=== PATIENT | female | born 1950 | race Caucasian/White ===

== ENCOUNTER 2016-11-11 01:09 | Observation (INO) | payer MEDICARE, OTHER ==
[~2016-11-11] VITALS: Ht 177.8 cm; Wt 88.9 kg
[2016-11-11] MEDS ORDERED: IV NORMAL SALINE 1000ML BAG 1,000 ML IV SCH (04:45)
[2016-11-11] MEDS: MORPHINE SULFATE 2 MG/ML DISP.SYRIN. IV PRN ×2 (05:47→09:54)
[2016-11-11 07:00] VITALS: BP 121/57
[2016-11-11 11:00] VITALS: BP_SYST 110; BP_SYST 116; BP_DIAS 50; BP_DIAS 57
[2016-11-11 15:00] VITALS: BP 108/54
--- NOTE | 2016-11-11 17:49 | PDOC2 ---
CONSULT Date of Consult Date of Consult DATE: 11/11/16 TIME: 13:00 Reason for Consult Reason for Consult: right ankle fracture Referring Physician Referring Physician: Dr. Rice Identification/Chief Complaint Chief Complaint right ankle pain Source Source: Patient History of Present Illness Reason for Visit: Ms. Armenta is a 65 year old female patient who was transferred here from [facility] for a right ankle fracture. She fell down one step at home last night, twisting her ankle. She states she heard a pop. She could bear weight on the right lower extremity, but it was painful. She denies hitting her head, feelings of lightheadedness, or loss of consciousness. The ankle is immobilized in a posterior splint and she has mild ankle pain. She has fractured this ankle in the past. Past Medical History Past Medical History seasonal allergies Cardiovascular: Hyperlipidemia Endocrine: Hypothyroidism Past Surgical History Past Surgical History right ankle ORIF and hardware removal, bowel obstruction surgery x2, knee arthroscopy, Gloria's neuroma removal, left foot bunionectomy Past Surgical History: Hysterectomy Family History Family History: Cancer, Heart Disease Social History Social History lives at own home with No ALCOHOL: none Drugs: None Lives: with Family Current Medications Current Medications Current Medications Sodium Chloride (Iv Sodium Chloride 0.9% 1000ml Bag) 1,000 ml @ 75 mls/hr [id number] IV Last administered on 11/11/16 04:53; Start 11/11/16 at 04:45 Morphine Sulfate 2 mg PRN Q2HR PRN IV PAIN Last administered on 11/11/16 09:54 ; Start 11/11/16 at 04:45 Ondansetron HCl (Zofran) 4 mg PRN Q6HRS PRN IV NAUSEA/VOMITING; Start 11/11/16 at 04:45 Allergies Allergies: Coded Allergies: Sulfa (Sulfonamide Antibiotics) (Verified Allergy, Severe, 11/11/16) Rashes nalbuphine (Verified Allergy, Intermediate, headache, 11/11/16) Uncoded Allergies: oxucodone (Allergy, Mild, headache, 11/11/16) ROS General: No: Chills, Night Sweats Eyes: No Decreased vision, No Double vision HEENT: No: Heacaches, Hearing change, Visual Changes Hematological and Lymphatic: No: Blood Clots Respiratory: No: Cough, Pleuritic Pain, Shortness of breath Cardiovascular: No Chest Pain Gastrointestinal: No Abdominal Pain, No Constipation, No Diarrhea, No Nausea, No Vomiting Genitourinary: No Dysuria Musculoskeletal: Yes Pain In: (right ankle. States she has had remote right elbow pain after injuring her elbow putting together furniture) Neurological: No Confusion, No Dizziness Physical Exam General: Alert, Oriented X3, Cooperative, No acute distress HEENT: Atraumatic, EOMI Lungs: Normal air movement Heart: Regular rate Abdomen: Soft Extremities: No clubbing, No cyanosis, No edema, Normal pulses Skin: No rashes, No breakdown, No significant lesion Neuro: Normal speech, Normal tone, Sensation intact Psych/Mental Status: Mental status NL, Mood NL MUSCULOSKELETAL: Other (The right ankle is in a posterior orthoglass splint. The splint was removed and the ankle was examined. There is no ecchymosis visualized. The medial malleolus is not tender to palpation. There is tenderness to palpation laterally, over the fracture. Calf soft and nontender. No edema. Posterior tibialis and dorsalis pedis pulse intact bilaterally. Light touch sensation intact.) Vitals VITALS Vital Signs Date Time Temp Pulse Resp B/P Pulse Ox O2 Delivery O2 Flow Rate FiO2 11/11/16 15:00 98.3 62 18 108/54 92 Room Air 98.3 Images Images Tib/fib and foot x-rays were negative for acute bony findings. Right ankle x-rays show an oblique fracture of the distal fibula without significant displacement. There is no fracture seen of the medial malleolus. There is 3.21 mm of medial widening. Assessment/Plan Assessment/Plan Right distal fibula fracture. The lateral malleolus fracture is very minimally displaced and is stable. Dr. Darnell recommended nonoperative treatment for this with immobilization for two weeks. Surgery is generally not recommended for < 7 mm of medial widening. Toe- touch weightbearing with a walker or crutches, whatever the patient is most comfortable with. Citracal, two tablets twice daily, which the patient already takes. Begin aspirin 325mg daily for DVT prophylaxis. Office followup in 10-14 days, at which time we will switch to a CAM walker and begin some progressive weightbearing. HOLLY CHARLES Nov 11, 2016 17:49
[2016-11-11] MEDS ORDERED: LEVO75TA5 PO (17:52)
[2016-11-11] MEDS ORDERED: TIZA4TAB PO (17:52)
[2016-11-11] MEDS ORDERED: MONT10TA9 PO (17:54)
[2016-11-11] MEDS ORDERED: ESCI20TA10 PO (17:54)
[2016-11-11] MEDS ORDERED: ATOR20TA58 PO (17:54)
--- NOTE | 2016-11-11 17:54 | HP ---
ADMIT DATE: 11/11/2016 CHIEF COMPLAINT: Tib-fib fracture. HISTORY OF PRESENT ILLNESS: The patient is a 65-year-old woman who unfortunately missed steps on her stairs and fell. She experienced severe pain which after a few hours made her present to the Emergency Room. On x-ray, her fear of fracture was indeed confirmed. She relates that about 15 years ago, she actually fractured ankle on the same side (right) and had required surgery at that time. She denies any other significant surgeries. Pain currently is fairly well controlled. PAST MEDICAL HISTORY: Hypercholesterolemia and environmental allergies. FAMILY HISTORY: Negative for heart disease or strokes. SOCIAL HISTORY: Works as a community fundraiser, never smoked. No alcohol or drug use. ALLERGIES: SULFA, NALBUPHINE, and OXYCODONE. MEDICATIONS: MAR reconciled with home medications. REVIEW OF SYSTEMS: Pain in right lower extremity. No other symptoms in rest of organ system review. PHYSICAL EXAMINATION: VITAL SIGNS: From today show a blood pressure of 116/50, heart rate of 100. She is afebrile. GENERAL: This is a well-nourished, well developed, 65-year-old woman, very pleasant. HEENT: Shows no scleral icterus. NECK: Supple without any lymphadenopathy. LUNGS: Clear to auscultation bilaterally. HEART: Regular rate and rhythm without any murmurs. ABDOMEN: Has positive bowel sounds, soft, and nontender. EXTREMITIES: Show no edema. Right lower extremity is in cast. LABORATORY DATA: From [facility] were reviewed. ASSESSMENT AND PLAN: 1. The patient is a 65-year-old woman who unfortunately had a traumatic tib-fib fracture which requires orthopedic fixation. Pain control in the meantime is adequate on her current regimen with morphine sulfate two q. 2 h. 2. Continue IV fluids, keep her n.p.o. for the time being. Once postsurgical, home medications will be continued, and Lovenox will be started tomorrow morning, pending surgical okay. FOSTER CHIANG MD DR: UR/nts JOB#: [id number] / [id number] SHANTELL Deng
[2016-11-11] MEDS ORDERED: MELO-156 PO (17:55)
[2016-11-11] MEDS ORDERED: HYDROCODONE/APAP 5/325MG TABLET. PO PRN ×2 (18:00)
[2016-11-11 19:00] VITALS: BP 128/60
[2016-11-11] MEDS ORDERED: TRAMADOL 50 MG TABLET. PO PRN (20:30)
[2016-11-11] MEDS: TRAMADOL 50 MG TABLET. PO PRN (20:48)
[2016-11-11 23:00] VITALS: BP 132/59
[2016-11-12] MEDS ORDERED: tiZANidine 4 MG TABLET. PO PRN
[2016-11-12] MEDS: TRAMADOL 50 MG TABLET. PO PRN ×3 (02:16→14:00)
[2016-11-12 03:00] VITALS: BP 102/40
--- NOTE | 2016-11-12 06:12 | ACF ---
Admit Criteria Forms Admit Criteria Forms Admit Criteria Forms MUSCULOSKELETAL DISEASE GRG Clinical Indications for Admission to Inpatient Care (Place 'X' for any and all applicable criteria): Hospital admission is needed for appropriate care of the patient because of 1 or more of the following: [X]I. Fracture, dislocation, or other musculoskeletal injury requiring inpatient care(medical) as indicated by 1 or more of the following(4)(5)(6)(7) [ ]a) Vertebral fracture requiring observation for instability or neurologic compromise (8) [ ]b) Compartment syndrome (proven or cannot be ruled out during observation level of care) (9) [ ]c) Limb-threatening injury [X]d) Major injury requiring inpatient stabilization such as traction initiation or external fixation before internal fixation or closure of complex or open fracture [X]e) Major injury requiring inpatient treatment after emergency or observation level care (as appropriate) [X]f) Severe pain requiring acute inpatient management [ ]g) Injury with suspicion of abuse or neglect (eg., child, dependent elderly) [ ]II. Newly diagnosed or suspected bone, joint, or orthopedic device infection (e.g., osteomyelitis, septic arthritis) needing 1 or more of the following(1)(2)(3) [ ]a) IV antibiotics that cannot be initiated in other than inpatient setting (e.g., patient too unstable or home infusion not available) [ ]b) Device removal or replacement [ ]c) Bone or soft tissue debridement [ ]d) Joint drainage (drain placement or repetitive aspirations) [ ]III. Severe rheumatologic disease (e.g., systemic lupus erythematosus, rheumatoid arthritis) with complications or comorbidities (Also use Optimal Recovery Care Criteria or General Recovery Criteria as appropriate on the basis of predominant condition), including 1 or more of the following( 10)(11)(12)(13) [ ]a) Severe infection (e.g., DENTAL APPLIANCE REPAIRER infection, sepsis) (14) [ ]b) Respiratory complications, including 1 or more of the following : [ ]i) Pleural effusion with respiratory compromise [ ]ii) Pulmonary hypertension with congestive failure [ ]iii) Respiratory failure [ ]iv) Pulmonary hemorrhage (15) [ ]c) Hematologic disease, including 1 or more of the following: [ ]i) Coagulopathy with bleeding [ ]ii) Thrombosis with hypercoagulable state [ ]iii) Thrombotic thrombocytopenic purpura [ ]d) Cerebritis with seizures, psychosis, or other severe abnormalities [ ]e) Vertebral destruction with monitoring needed for cervical myelopathy& possible respiratory compromise [ ]f) Exacerbation that requires inpatient treatment (e.g., intravenous immunosuppression) (16) [ ]g) Acute renal failure [ ]h) Cerebritis with seizures, psychosis, Altered mental status, or other neurologic abnormalities [ ]i) Pericardial effusion with tamponade [ ]j) Vertebral destruction, with monitoring needed for cervical myelopathy and possible respiratory compromise [ ]IV. Severe vasculitis with complications or comorbidities (Also use Optimal Recovery Care Criteria General Recovery Criteria as appropriate on the basis of predominant condition), including 1 or more of the following(11)(12)(17)(18)(19)(20) [ ]a) Exacerbation that requires inpatient treatment (e.g., intravenous immunosuppression) (19)(21) [ ]b) Pulmonary hemorrhage (15) [ ]c) DENTAL APPLIANCE REPAIRER vasculitis with seizures, psychosis, Altered mental status that is severe or persistent, or other severe abnormalities (22) [ ]d) Cerebral infarction [ ]e) Gastrointestinal ischemia [ ]f) Gangrene or threatened amputation [ ]g) Renal failure (16) [ ]h) Other significant complications of vasculitis ( eg., tissue or organ ischemia, organ dysfunction ) [ ]V. Severe myopathy as indicated by 1 or more of the following (28)(29) [ ]a) New onset of airway compromise or inability to swallow [ ]b) Respiratory deterioration with observation needed for impending respiratory failure [ ]c) Exacerbation that requires inpatient treatment (e.g., intravenous immunosuppression) [ ]. Severe crystal gout (arthropathy) indicated by 1 or more of the following (23)(24) [ ]a) Severe pain requiring acute inpatient management [ ]b) Exacerbation that requires inpatient treatment (e.g., intravenous treatment) [ ]VII.Rhabdomyolysis and 1 or more of the following (25)(26)(27) [ ]a) Acute renal failure [ ]b) Need for intravenous hydration after emergency or observation level care (as appropriate) [ ]c) Inability to maintain oral hydration [ ]d) Change in mental status [ ]e) Electrolyte abnormality that remains after emergency or observation level care (as appropriate) [ ]VIII Post amputation complication, as indicated by ANY ONE of the following [ ]a) Infection [ ]b) Dehiscence [ ]c) Myodesis failure [ ]IX. Severe pain requiring acute inpatient management due to musculoskeletal condition [ ]X. Musculoskeletal Disease and ALL of the following: [ ]a) Symptom or finding for which emergency and observation care have failed or are not considered appropriate (Use General Criteria: Observation Care as appropriate) [ ]b) Presence of ANY ONE of the following [ ]i) A General Admission Criteria [ ]ii) A Pediatric General Admission Criteria The original [facility] [employer] content created by [facility] has been revised. The portions of the content which have been revised are identified through the use of italic text or in bold, and [facility] has neither reviewed nor approved the modified material. All other unmodified content is copyright [facility]. Please see references footnoted in the original [facility] edition 2016 MARIAMA REDDY Nov 12, 2016 06:12
[2016-11-12 07:00] VITALS: BP 99/51
[2016-11-12] MEDS ORDERED: LEVOTHYROXINE 75 MCG TABLET PO SCH (07:00)
[2016-11-12] MEDS ORDERED: MELOXICAM 7.5 MG TABLET PO SCH (09:00)
[2016-11-12] MEDS ORDERED: TRAM50TA PO (10:07)
--- NOTE | 2016-11-12 10:13 | PDOC3 ---
Discharge Summary Visit Information Date of Admission: Nov 11, 2016 Date of Discharge: Nov 12, 2016 Admitting Diagnosis: ankle fracture Final Diagnosis Problems Medical Problems: (1) Ankle fracture Status: Acute Brief Hospital Course Allergies Allergies Coded Allergies Type Severity Reaction Last Updated Verified Sulfa (Sulfonamide Antibiotics) Allergy Severe 11/11/16 Yes nalbuphine Allergy Intermediate headache 11/11/16 Yes hydrocodone Allergy Unknown 11/11/16 Yes oxycodone Adverse Reaction Intermediate HEADACHE 11/11/16 No Vital Signs Vital Signs Date Time Temp Pulse Resp B/P Pulse Ox O2 Delivery O2 Flow Rate FiO2 11/12/16 07:00 98.1 60 16 99/51 93 Room Air 98.1 Brief Hospital Course Ms. Armenta is a 65 old woman who was transferred here from [facility] ER for a right ankle fracture, traumatic tib-fib fracture which required orthopedic fixation. Pain control OK with Ultram, takes mobic at home she felt well the next day, pain OK, wanted to DC home with crutches, PT eval pending Per Ortho, lateral malleolus fracture is very minimally displaced and is stable. Dr. Darnell recommended nonoperative treatment for this with immobilization for two weeks. Discharge Information Condition at Discharge: Improved Follow Up: Weeks Disposition/Orders: D/C to Home Scheduled Atorvastatin Calcium (Atorvastatin Calcium) 20 MG PO HS (Reported) Escitalopram Oxalate (Lexapro) 20 MG PO HS (Reported) Levothyroxine Sodium (Levothyroxine Sodium) 1 TAB PO DAILY (Reported) Meloxicam (Meloxicam) 1 TAB PO DAILY (Reported) Montelukast Sodium (Montelukast Sodium Tablet) 10 MG PO HS (Reported) Scheduled PRN Tizanidine Hcl (Tizanidine Hcl) 4 MG PO TID PRN PRN MUSCLE SPASMS (Reported) Tramadol Hcl (Tramadol Hcl) 50 MG PO PRN Q4HRS PRN PRN pain YOSSI DUNHAM MD Nov 12, 2016 10:13
[2016-11-12 11:34] VITALS: BP 132/67
[2016-11-12] MEDS ORDERED: POLYETHYLENE GLYCOL 3350 17 GM PACKET. PO ONE (12:15)
[2016-11-12] MEDS: ONDANSETRON PF 4 MG/2 ML VIAL. IV PRN ×2 (12:15→16:04)
[2016-11-12] MEDS ORDERED: MAGNESIUM HYDROXIDE 2,400 MG/30 ML ORAL.SUSP. PO PRN (12:15)
[2016-11-12] MEDS ORDERED: POLYETHYLENE GLYCOL 3350 17 GM PACKET. PO PRN (12:15)
[2016-11-12] MEDS ORDERED: DOCUSATE SODIUM 100 MG CAPSULE. PO PRN (12:15)
[2016-11-12 15:31] VITALS: BP 122/62
[2016-11-12] MEDS ORDERED: PROC10TA57 PO (16:42)
[2016-11-12] MEDS ORDERED: ATORVASTATIN CALCIUM 20 MG TABLET PO SCH (21:00)
[2016-11-12] MEDS ORDERED: ESCITALOPRAM 10 MG TABLET. PO SCH (21:00)
[2016-11-12] MEDS ORDERED: MONTELUKAST SODIUM 10 MG TABLET. PO SCH (21:00)
== END 2016-11-12 16:30 | disposition home or self-care (01) ==
LOC: 4 NORTH 04:23 → INTOOBSV 04:23
PROVIDERS: ADMIT Internal Medicine; ATTEND Internal Medicine
DX: S82.831A Other fracture of upper and lower end of right fibula, initial encounter for closed fracture (principal); E78.5 Hyperlipidemia, unspecified; E03.9 Hypothyroidism, unspecified; E78.00 Pure hypercholesterolemia, unspecified; Z80.9 Family history of malignant neoplasm, unspecified; W10.9XXA Fall (on) (from) unspecified stairs and steps, initial encounter; Y93.89 Activity, other specified; Y92.89 Other specified places as the place of occurrence of the external cause; Y99.8 Other external cause status
CPT/HCPCS: 96361; 96374; 96375; 96376; 97161; 97165; G0378; G0379; G8978; G8979; J2270; J2405; J7030

== ENCOUNTER → 2021-02-08 | Outpatient (CLI) | payer MEDICARE, OTHER ==
[~2021-02-08] MED LIST: ATOR20TA58 PO; LEVO75TA5 PO; LEXAPRO20 MG PO; MELO7.5T29 PO; MONT10TA49 PO; PROC10TA57 PO; TIZA4TAB2 PO; TRAM50TA PO
--- NOTE | 2021-02-08 11:13 | CARD ---
MR#: [id number] Date of Study: 02/08/2021 Ordering Physician: PETRONA MANNING, Referring Physician: PETRONA MANNING, Tech: Jam Aranda [facility] APPROVED REPORT EXAM: Two-dimensional and M-mode echocardiogram with Doppler and color Doppler. Other Information Quality : AverageHR: 63bpm Rhythm : NSR INDICATION Murmur 2D DIMENSIONS Left Atrium(2D)3.8 (1.6-4.0cm)IVSd0.8 (0.7-1.1cm) Aortic Root(2D)2.7 (2.0-3.7cm)LVDd4.4 (3.9-5.9cm) LVOT Diameter1.8 (1.8-2.4cm)PWd0.8 (0.7-1.1cm) LVDs2.2 (2.5-4.0cm)FS (%) 50.7 % SV72.5 ml Aortic Valve AoV Peak Miles.201.7cm/sAoV VTI44.5cm AO Peak GR.16.3mmHgLVOT Peak Miles.191.3cm/s AO Mean GR.10mmHgAVA (VMAX)2.46cm2 Mitral Valve MV E Gcsnbmqp737.0cm/sMV E Peak Gr.7mmHg MV DECEL [id number] A Xkyptvhs55.1cm/s MV E Mean Gr.2mmHgE/A Ratio1.5 Pulmonary Valve PV Peak Bmhqjokb767.0cm/s Tricuspid Valve TR P. Hyftzchq694mi/sTR Peak Gr.33mmHg Pulmonary Vein S1 Omuepdgm63.8cm/sD2 Pvwlwthl11.1cm/s LEFT VENTRICLE The left ventricle is normal size. There is normal left ventricular wall thickness. The left ventricu lar systolic function is normal. LV ejection fraction is 55 to 60%. There is normal LV segmental wall motion. No left ventricle thrombus noted on this study. There is no ventricular septal defect visual ized. There is no left ventricular aneurysm. There is no mass noted in the left ventricle. RIGHT VENTRICLE The right ventricle is normal size. There is normal right ventricular wall thickness. The right ventr icular systolic function is normal. ATRIA The left atrium is mildly dilated. The right atrium size is normal. The interatrial septum is intact with no evidence for an atrial septal defect or patent foramen ovale as noted on 2-D or Doppler imagi ng. AORTIC VALVE The aortic valve is normal in structure and function. Doppler and Color Flow revealed no significant aortic regurgitation. There is no significant aortic valvular stenosis. There is no aortic valvular v egetation. MITRAL VALVE Mitral annular calcification is mild. There is no evidence of mitral valve prolapse. There is no mitr al valve stenosis. Doppler and Color-flow revealed mild mitral regurgitation. TRICUSPID VALVE The tricuspid valve is normal in structure and function. Doppler and Color Flow revealed trace tricus pid regurgitation. There is no tricuspid valve prolapse or vegetation. There is no tricuspid valve st enosis. PULMONIC VALVE The pulmonary valve is normal in structure and function. Mild pulmonic regurgitation There is no pulm onic valvular stenosis. GREAT VESSELS The aortic root is normal in size. The ascending aorta is normal in size. The pulmonary artery is nor mal. The IVC is normal in size and collapses >50% with inspiration. PERICARDIAL EFFUSION There is no pleural effusion. There is no evidence of significant pericardial effusion. Critical Notification Critical Value: No <Conclusion> The left ventricle is normal size. The left ventricular systolic function is normal. LV ejection fraction is 55 to 60%. There is no significant aortic valvular stenosis. There is no aortic valvular vegetation. Doppler and Color-flow revealed mild mitral regurgitation. Doppler and Color Flow revealed trace tricuspid regurgitation. Signed by : Amrit Rodriguez MD Electronically Approved : 02/08/2021 11:13:35
== END ==
LOC: ECHO 09:55
PROVIDERS: ATTEND Physician Assistant Medical
DX: I08.8 Other rheumatic multiple valve diseases (principal); R01.1 Cardiac murmur, unspecified
CPT/HCPCS: 93306

== ENCOUNTER → 2021-02-26 | Outpatient (CLI) | payer MEDICARE, OTHER ==
--- NOTE | 2021-02-27 17:18 | RAD ---
MR#: [id number] Date of Study: 02/26/2021 Ordering Physician: OSWALD COFFMAN, Referring Physician: OSWALD COFFMAN, Tech: Jael Hayes RDMS, RVT, RTR APPROVED REPORT Patient Location : OUT-PATIENT Indications Lower Extremity Edema : Bilateral Peripheral Edema Findings The right great saphenous vein measures 5.3 mm. The left great saphenous vein measures 4.4 mm. The bilateral greater and lesser saphenous veins do not show any evidence of reflux. Critical Notification Critical Value: No <Conclusion> 1. Negative for reflux in the bilateral lower extremity Signed by : Oswald Coffman, Electronically Approved : 02/27/2021 17:17:54
== END ==
LOC: US 12:20
PROVIDERS: ATTEND Internal Medicine Cardiovascular Disease
DX: R60.0 Localized edema (principal)
CPT/HCPCS: 93970